=== PATIENT | female | born 1960 | race Caucasian/White ===

== ENCOUNTER 2025-08-28 10:12 | Outpatient (CLI) | payer MEDICAID | END 2025-08-28 10:13 | disposition home or self-care (01) | LOC: CSHSLEEP 10:12 | PROVIDERS: ATTEND Internal Medicine | DX: G47.33 Obstructive sleep apnea (adult) (pediatric) (principal); E11.9 Type 2 diabetes mellitus without complications; F32.A Depression, unspecified; I10 Essential (primary) hypertension | CPT/HCPCS: 95800 ==

== ENCOUNTER 2025-08-30 13:45 | Emergency (ER) | payer MEDICAID | END 2025-08-30 14:15 | LOC: CSHERS 13:45 | DX: Z53.21 Procedure and treatment not carried out due to patient leaving prior to being seen by health care provider (principal) ==